=== PATIENT | female | born 1995 | race Caucasian/White ===

== ENCOUNTER 2018-02-21 02:08 | Inpatient (IN) | payer OTHER ==
[2018-02-21] MEDS ORDERED: MORPHINE 4 MG/ML SYR ONE ×2 (02:40→05:19)
[2018-02-21] MEDS ORDERED: ONDANSETRON 4 MG/2 ML VIAL ONE (02:40)
[2018-02-21 02:52] LABS: Absolute Lymphocytes (CBC) 2.2 K/uL (0.7-4.9); Absolute Monocytes 0.7 K/uL (0.1-1.3); Absolute Neutrophil 8.9 K/uL (1.8-8.0); Basophils % 0.8 % (0-1.3); Eosinophils % 1.4 % (0-4.4); Hematocrit 41.3 % (36.0-45.0); Lymphocytes % 18.1 % (15.3-44.8); MCH 29.6 pg (27.0-35.0); MCV 85.4 fL (80-100); MPV 9.6 fL (7.6-11.3); Monocytes % 5.7 % (3.3-12.3); RBC Red Blood Cell Count 4.84 M/uL (3.86-4.86)
[2018-02-21 03:10] LABS: ALT/SGPT 53 U/L (12-78); AST/SGOT 32 U/L (15-37); Albumin 3.8 g/dL (3.4-5.0); Alkaline Phosphatase 109 U/L (45-117); Amylase Level 64 U/L (25-115); BUN Blood Urea Nitrogen 11 mg/dL (7-18); Bicarbonate 27 mmol/L (21-32); Bilirubin Direct 0.2 mg/dL (0-0.2); Bilirubin Total 0.8 mg/dL (0.2-1.0); Glucose Level 100 mg/dL (74-106); Lipase 100 U/L (73-393); Potassium 3.7 mmol/L (3.5-5.1); Protein, Total 7.9 g/dL (6.4-8.2); Sodium Level 141 mmol/L (136-145)
[2018-02-21 03:11] LABS: Urine Blood TRACE (NEG); Urine Glucose NEGATIVE (NEG); Urine Protein NEGATIVE (NEG); Urine Specific Gravity 1.025 (1.005-1.030); Urine pH 6.5 (5.0-7.0)
[2018-02-21 03:14] LABS: Urine Bacteria <20 /HPF (<20); Urine Culture Reflex Order NOT NEEDED; Urine RBC NONE SEEN /HPF (NONE SEEN)
--- NOTE | 2018-02-21 03:41 | EDPHYS ---
Physician Documentation [facility] Name: Sunita Sample Age: 22 yrs Sex: Female : 1995 Arrival Date: 02/21/2018 Time: 02:09 Bed 13 Private MD: ED Physician Edilberto Ku HPI: 02/21 03:37 This 22 yrs old Female presents to ER via Ambulatory with complaints of ana Abdominal Pain. 03:37 The patient presents with abdominal pain in the upper abdomen. Onset: The ana symptoms/episode began/occurred 1 day(s) ago. The symptoms radiate to Associated signs and symptoms: none. The symptoms are described as sharp. Modifying factors: The symptoms are alleviated by nothing, the symptoms are aggravated by food. Severity of pain: At its worst the pain was moderate. The patient has not experienced similar symptoms in the past. 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 - Social history:: Smoking status: Patient/guardian denies using tobacco. - Ebola Screening: : No symptoms or risks identified at this time. - Family history:: not pertinent. ROS: 03:37 Constitutional: Negative for fever, chills, and weight loss, Eyes: Negative for injury, ana pain, redness, and discharge, ENT: Negative for injury, pain, and discharge, Neck: Negative for injury, pain, and swelling, Cardiovascular: Negative for chest pain, palpitations, and edema, Respiratory: Negative for shortness of breath, cough, wheezing, and pleuritic chest pain, Back: Negative for injury and pain, : Negative for injury, bleeding, discharge, and swelling, MS/Extremity: Negative for injury and deformity, Skin: Negative for injury, rash, and discoloration, Neuro: Negative for headache, weakness, numbness, tingling, and seizure, Psych: Negative for depression, anxiety, suicide ideation, homicidal ideation, and hallucinations, Allergy/Immunology: Negative for hives, rash, and allergies, Endocrine: Negative for neck swelling, polydipsia, polyuria, polyphagia, and marked weight changes, Hematologic/Lymphatic: Negative for swollen nodes, abnormal bleeding, and unusual bruising. 03:37 Abdomen/GI: Positive for abdominal pain, of the epigastric area and right upper quadrant. Exam: 03:37 Constitutional: This is a well developed, well nourished patient who is awake, alert, ana and in no acute distress. Head/Face: Normocephalic, atraumatic. Eyes: Pupils equal round and reactive to light, extra-ocular motions intact. Lids and lashes normal. Conjunctiva and sclera are non-icteric and not injected. Cornea within normal limits. Periorbital areas with no swelling, redness, or edema. ENT: Nares patent. No nasal discharge, no septal abnormalities noted. Tympanic membranes are normal and external auditory canals are clear. Oropharynx with no redness, swelling, or masses, exudates, or evidence of obstruction, uvula midline. Mucous membranes moist. Neck: Trachea midline, no thyromegaly or masses palpated, and no cervical lymphadenopathy. Supple, full range of motion without nuchal rigidity, or vertebral point tenderness. No Meningismus. Chest/axilla: Normal chest wall appearance and motion. Nontender with no deformity. No lesions are appreciated. Cardiovascular: Regular rate and rhythm with a normal S1 and S2. No gallops, murmurs, or rubs. Normal PMI, no JVD. No pulse deficits. Respiratory: Lungs have equal breath sounds bilaterally, clear to auscultation and percussion. No rales, rhonchi or wheezes noted. No increased work of breathing, no retractions or nasal flaring. Back: No spinal tenderness. No costovertebral tenderness. Full range of motion. Female : Normal external genitalia. Skin: Warm, dry with normal turgor. Normal color with no rashes, no lesions, and no evidence of cellulitis. MS/ Extremity: Pulses equal, no cyanosis. Neurovascular intact. Full, normal range of motion. Neuro: Awake and alert, GCS 15, oriented to person, place, time, and situation. Cranial nerves II-XII grossly intact. Motor strength 5/5 in all extremities. Sensory grossly intact. Cerebellar exam normal. Normal gait. Psych: Awake, alert, with orientation to person, place and time. Behavior, mood, and affect are within normal limits. 03:37 Abdomen/GI: Inspection: abdomen appears normal, Bowel sounds: normal, Palpation: mild abdominal tenderness, moderate abdominal tenderness, in the epigastric area and right upper quadrant, Indicators: Elkins's sign is positive, Liver: no appreciated palpable abnormalities, Hernia: not appreciated. Vital Signs: 02:28 BP 123 / 69; Pulse 80; Resp 18; Temp 97.6(O); Pulse Ox 100% on R/A; Weight 81.65 kg; ea Height 5 ft. 7 in. (170.18 cm); Pain 9/10; 03:33 BP 112 / 65; Pulse 67; Resp 17 S; Pulse Ox 100% on R/A; jd3 04:41 BP 119 / 76; Pulse 58; Resp 16 S; Pulse Ox 100% on R/A; Pain 3/10; jd3 05:22 BP 108 / 67; Pulse 66; Resp 17 S; Pulse Ox 100% on R/A; Pain 6/10; jd3 02:28 Body Mass Index 28.19 (81.65 kg, 170.18 cm) MDM: 02:56 Patient medically screened. [facility] 03:37 Data reviewed: vital signs, nurses notes, lab test result(s), radiologic studies, ana ultrasound. 02/21 02:25 Order name: Amylase, Serum; Complete Time: 03:28 ea 02/21 02:25 Order name: Basic Metabolic Panel; Complete Time: 03:28 ea 02/21 02:25 Order name: CBC with Diff; Complete Time: 03:28 ea 02/21 02:25 Order name: Hepatic Function; Complete Time: 03:28 ea 02/21 02:25 Order name: Lipase; Complete Time: 03:28 ea 02/21 02:25 Order name: Urine Microscopic Only; Complete Time: 03:28 ea 02/21 03:01 Order name: Urine Dipstick--Ancillary (enter results); Complete Time: 03:28 ms 02/21 03:01 Order name: Urine --Ancillary (enter results); Complete Time: 03:28 ms 02/21 03:46 Order name: Basic Metabolic Panel EDMS 02/21 03:46 Order name: Basic Metabolic Panel EDMS 02/21 03:46 Order name: CBC with Automated Diff EDMS 02/21 03:46 Order name: CBC with Automated Diff EDMS 02/21 03:46 Order name: Lipase EDMS 02/21 02:25 Order name: Urine Test (obtain specimen); Complete Time: 02:36 ea 02/21 02:25 Order name: IV Saline Lock; Complete Time: 02:25 ea 02/21 02:25 Order name: Labs collected and sent; Complete Time: 02:25 ea 02/21 02:25 Order name: EKG; Complete Time: 02:26 ea 02/21 03:37 Order name: US Abdomen Limited [facility] 02/21 03:46 Order name: NPO EDCO 02/21 03:46 Order name: Lipase [facility] 02/21 03:46 Order name: Liver (Hepatic) Function [facility] 02/21 03:46 Order name: Liver (Hepatic) Function [facility] 02/21 02:25 Order name: Urine Dipstick-Ancillary (obtain specimen); Complete Time: 02:36 ea 02/21 02:25 Order name: EKG - Nurse/Tech; Complete Time: 02:25 ea Administered Medications: 02:46 Drug: morphine 2 mg Route: IVP; Site: right antecubital; jd3 04:04 Follow up: Response: No adverse reaction jd3 02:46 Drug: Zofran 4 mg Route: IVP; Site: right antecubital; jd3 04:04 Follow up: Response: No adverse reaction jd3 02:53 Drug: morphine 2 mg Route: IVP; Site: right antecubital; ea 04:05 Follow up: Response: No adverse reaction jd3 04:03 Drug: NS 0.9% 1000 ml Route: IV; Rate: 1 bolus; Site: right antecubital; jd3 04:39 Follow up: Response: No adverse reaction; IV Status: Completed infusion; IV Intake: jd3 1000ml 04:04 Drug: Zosyn 3.375 grams Route: IVPB; Infused Over: 60 mins; Site: right antecubital; jd3 04:38 Follow up: Response: No adverse reaction; IV Status: Completed infusion jd3 04:04 Drug: Pepcid 20 mg Route: IVP; Site: right antecubital; jd3 04:39 Follow up: Response: No adverse reaction jd3 05:22 Drug: morphine 4 mg Route: IVP; Site: right antecubital; jd3 05:41 Follow up: Response: No adverse reaction; Pain is decreased jd3 Disposition: 02/21/18 03:40 Hospitalization ordered by Ben Bernstein for Observation. Preliminary diagnosis is Abdominal tenderness. - Bed requested for Telemetry/MedSurg (observation). - Status is Observation. ea - Condition is Stable. - Problem is new. - Symptoms have improved. UTI on Admission? No Signatures: Dispatcher [employer] EDCO Arina Coronado RN Edilberto Carrasco MD MD cha Antunez, Elena, RN RN ea Davies, Jonathon, RN RN jd3 Corrections: (The following items were deleted from the chart) 02:48 02:26 Creatinine for Radiology+C.LAB.BRZ ordered. [facility] EDCO 05:30 03:40 Hospitalization Ordered by Ben Bernstein MD for Observation. Preliminary diagnosis is Abdominal tenderness. Bed requested for Telemetry/MedSurg (observation). Status is Observation. Condition is Stable. Problem is new. Symptoms have improved. UTI on Admission? No. ana 06:10 05:30 02/21/2018 03:40 Hospitalization Ordered by Ben Bernstein MD for Observation. ea Preliminary diagnosis is Abdominal tenderness. Bed requested for Telemetry/MedSurg (observation). Status is Observation. Condition is Stable. Problem is new. Symptoms have improved. UTI on Admission? No. kl
--- NOTE | 2018-02-21 03:41 | ER ---
Nurse's Notes [facility] Name: Sunita Sample Age: 22 yrs Sex: Female : 1995 Arrival Date: 02/21/2018 Time: 02:09 Bed 13 Private MD: Diagnosis: Abdominal tenderness Presentation: 02/21 02:21 Presenting complaint: Patient states: She started having right upper quadrant pain at ea 1600 yesterday. Reports the pain feels like a stabbing pain and she feels bloated. Transition of care: patient was not received from another setting of care. Onset of symptoms was February 21, 2018. Risk Assessment: Do you want to hurt yourself or someone else? Patient reports no desire to harm self or others. Initial Sepsis Screen: Does the patient meet any 2 criteria? No. Patient's initial sepsis screen is negative. Does the patient have a suspected source of infection? No. Patient's initial sepsis screen is negative. Care prior to arrival: None. 02:21 Method Of Arrival: Ambulatory ea 02:21 Acuity: BIJU 3 ea Triage Assessment: 02:27 General: Appears uncomfortable, Behavior is calm, cooperative, appropriate for age. ea Pain: Complains of pain in right upper quadrant Pain does not radiate. Pain currently is 9 out of 10 on a pain scale. Quality of pain is described as sharp, stabbing. GI: Abdomen is non-distended. 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 - Social history:: Smoking status: Patient/guardian denies using tobacco. - Ebola Screening: : No symptoms or risks identified at this time. - Family history:: not pertinent. Screenin:29 Abuse screen: Denies threats or abuse. Nutritional screening: No deficits noted. ea Tuberculosis screening: No symptoms or risk factors identified. Fall Risk None identified. Assessment: 02:25 General: Appears uncomfortable, Behavior is cooperative, appropriate for age, anxious. jd3 Pain: Complains of pain in right upper quadrant Pain currently is 9 out of 10 on a pain scale. Quality of pain is described as sharp, stabbing, Is continuous. Neuro: Level of Consciousness is awake, alert, obeys commands, Oriented to person, place, time, situation. Cardiovascular: Heart tones S1 S2 present Capillary refill < 3 seconds Patient's skin is warm and dry. Respiratory: Airway is patent Respiratory effort is even, unlabored, Respiratory pattern is regular, symmetrical, Breath sounds are clear bilaterally. GI: Abdomen is round Bowel sounds present X 4 quads. Abd is soft Abdomen is tender to palpation in right upper quadrant. : No signs and/or symptoms were reported regarding the genitourinary system. EENT: No signs and/or symptoms were reported regarding the EENT system. Derm: Skin is intact, Skin is dry, Skin is normal, Skin temperature is warm. Musculoskeletal: Circulation, motion, and sensation intact. Range of motion: intact in all extremities. 03:33 Reassessment: Patient appears in no apparent distress at this time. Patient and/or jd3 family updated on plan of care and expected duration. Pain level reassessed. Patient is alert, oriented x 3, equal unlabored respirations, skin warm/dry/pink. 04:42 Reassessment: Patient appears in no apparent distress at this time. Patient and/or jd3 family updated on plan of care and expected duration. Pain level reassessed. Patient is alert, oriented x 3, equal unlabored respirations, skin warm/dry/pink. Patient states feeling better. 05:23 Reassessment: Patient appears in no apparent distress at this time. Patient and/or jd3 family updated on plan of care and expected duration. Pain level reassessed. Patient is alert, oriented x 3, equal unlabored respirations, skin warm/dry/pink. pt reporting returning of pain sensation, provider notified, new orders received, see OCT. Vital Signs: 02:28 BP 123 / 69; Pulse 80; Resp 18; Temp 97.6(O); Pulse Ox 100% on R/A; Weight 81.65 kg; ea Height 5 ft. 7 in. (170.18 cm); Pain 9/10; 03:33 BP 112 / 65; Pulse 67; Resp 17 S; Pulse Ox 100% on R/A; jd3 04:41 BP 119 / 76; Pulse 58; Resp 16 S; Pulse Ox 100% on R/A; Pain 3/10; jd3 05:22 BP 108 / 67; Pulse 66; Resp 17 S; Pulse Ox 100% on R/A; Pain 6/10; jd3 02:28 Body Mass Index 28.19 (81.65 kg, 170.18 cm) ea ED Course: 02:09 Patient arrived in ED. am2 02:23 Triage completed. ea 02:26 Inserted saline lock: 20 gauge in right antecubital area, using aseptic technique. ea Blood collected. Placed by Vijay LAINEZ. 02:29 Patient has correct armband on for positive identification. Bed in low position. Call ea light in reach. Side rails up X2. Adult w/ patient. 02:29 Arm band placed on right wrist. Patient placed in an exam room, on a stretcher, on ea pulse oximetry. 02:34 Vijay Dan RN is Primary Nurse. j 02:56 Edilberto Ku MD is Attending Physician. ana 03:39 Ben Bernstein MD is Hospitalizing Provider. [facility] 05:55 No provider procedures requiring assistance completed. Patient admitted, IV remains in jd3 place. Administered Medications: 02:46 Drug: morphine 2 mg Route: IVP; Site: right antecubital; jd3 04:04 Follow up: Response: No adverse reaction jd3 02:46 Drug: Zofran 4 mg Route: IVP; Site: right antecubital; jd3 04:04 Follow up: Response: No adverse reaction jd3 02:53 Drug: morphine 2 mg Route: IVP; Site: right antecubital; ea 04:05 Follow up: Response: No adverse reaction jd3 04:03 Drug: NS 0.9% 1000 ml Route: IV; Rate: 1 bolus; Site: right antecubital; jd3 04:39 Follow up: Response: No adverse reaction; IV Status: Completed infusion; IV Intake: jd3 1000ml 04:04 Drug: Zosyn 3.375 grams Route: IVPB; Infused Over: 60 mins; Site: right antecubital; jd3 04:38 Follow up: Response: No adverse reaction; IV Status: Completed infusion jd3 04:04 Drug: Pepcid 20 mg Route: IVP; Site: right antecubital; jd3 04:39 Follow up: Response: No adverse reaction jd3 05:22 Drug: morphine 4 mg Route: IVP; Site: right antecubital; jd3 05:41 Follow up: Response: No adverse reaction; Pain is decreased jd3 Intake: 04:39 IV: 1000ml; Total: 1000ml. jd3 Outcome: 03:40 Decision to Hospitalize by Provider. ana 06:01 Admitted to Med/surg accompanied by tech, via wheelchair, room 421, with chart, Report jd3 called to Martha LAINEZ 06:01 Condition: stable 06:01 Instructed on the need for admit, Demonstrated understanding of instructions. 06:10 Patient left the ED. ea Signatures: Edilberto Ku MD MD cha Moreno, Amanda am2 Antunez, Elena RN RN Vijay Haas RN RN jd3 Corrections: (The following items were deleted from the chart) 02:26 02:26 Inserted saline lock: 20 gauge in right antecubital area, using aseptic ea technique. Blood collected. ea 02:28 02:27 GI: Abdomen is distended, ea ea
[2018-02-21] MEDS ORDERED: ACETAMINOPHEN 500 MG TAB PO PRN (03:42)
[2018-02-21] MEDS ORDERED: FAMOTIDINE 20 MG/2 ML VIAL IV ONE (03:45)
[2018-02-21] MEDS ORDERED: PIPER/TAZO/NS 3.375gm 3.375 GM/100 ML BAG ONE (03:45)
[2018-02-21] MEDS ORDERED: NA CHLORIDE 0.9% 1,000 ML ONE (03:46)
[2018-02-21] MEDS ORDERED: PIPER/TAZO/NS 3.375gm 3.375 GM/100 ML BAG IVPB SCH (06:00)
[2018-02-21 06:26] VITALS: BMI 28.9
[2018-02-21] MEDS: NA CHLORIDE 0.9% 1,000 ML IV SCH ×3 (06:33→18:02)
[2018-02-21] MEDS: FAMOTIDINE 20 MG/2 ML VIAL IV SCH ×2 (08:02→20:23)
--- NOTE | 2018-02-21 08:51 | RAD REPORT ---
EXAM DESCRIPTION: US - Abdomen Exam Limited - 02/21/2018 7:17 am CLINICAL HISTORY: Abdominal pain. COMPARISON: None. FINDINGS: A 14 millimeter stone is present within the gallbladder neck. The gallbladder wall is thic kened measuring 4 millimeters. The biliary tree is normal caliber. IMPRESSION: Cholelithiasis. A stone appears lodged in the gallbladder neck. Mildly thickened gallbla dder wall probably indicates cholecystitis
--- NOTE | 2018-02-21 10:00 | EKG ---
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
[2018-02-21] MEDS: ONDANSETRON 4 MG/2 ML VIAL IV PRN ×2 (10:34→20:23)
[2018-02-21] MEDS: MORPHINE 4 MG/ML SYR IV PRN ×3 (10:34→20:23)
[2018-02-21] MEDS: PIPER/TAZO/NS 3.375gm 3.375 GM/100 ML BAG IVPB SCH ×2 (10:38→18:02)
--- NOTE | 2018-02-21 18:49 | HP ---
Date of Admission: 02/21/2018 History Of Present Illness: This is a case of a 22-year-old patient, came this morning complaining o f epigastric right upper quadrant pain radiating to the back, associated with nausea and vomiting. S he denies any family member sick at home. Denies any recent travelling out of the country. It has b een about a day like that. She denies any dysuria, hematuria, hematochezia, melena. Denies any rece nt traveling out of the country. Denies any family members sick at home. Allergies: SULFA. Medication: control. Past Surgical History: Appendectomy. Past Medical History: None. Social History: She does not smoke. She does not drink alcohol. Review of Systems: Constitutional: Denies any fever. Respiratory: Denies any shortness of breast. Gastrointestinal: As above. Genitourinary: Denies any dysuria, hematuria, or any vaginal discharge. Physical Examination: General: The patient is awake and alert. HEENT: Pupils are equal and reactive, anicteric. Neck: Supple. Chest: Clear. Abdomen: Right upper quadrant tenderness with Elkins sign positive. The rest of the abdomen is soft and depressible. Breasts: Deferred Pelvic: Deferred. Rectal: Deferred. Extremities: Good capillary refill. Cranial nerves 2 through 12 grossly within normal limits. Laboratory Data: WBC count of 12.1, with hemoglobin of 14.3, potassium 3.7. CAT scan of the abdomen and pelvis, just report came out as cholelithiasis with thickening of the gallbladder, indicate chol ecystitis as per Dr. Collado. Assessment: A 22-year-old patient with acute cholecystitis, symptomatic cholelithiasis. The benefit s, alternatives, and risks of laparoscopic, possible open cholecystectomy fully explained, which incl ude, but are not limited to infection, bleeding, damage to adjacent structures, anesthesia complicati on, choledocholithiasis, bile leak, pancreatitis, DC, and even . She also understands this may not relieve any symptoms. She might need more than one surgical intervention. The patient was booke d in OR. JUSTA/ANITA Voice ID: [id number]
[2018-02-21] MEDS: D5 0.9 NS 1,000 ML IV SCH (20:23)
[2018-02-22] MEDS: PIPER/TAZO/NS 3.375gm 3.375 GM/100 ML BAG IVPB SCH ×3 (00:27→17:00)
[2018-02-22] MEDS: D5 0.9 NS 1,000 ML IV SCH ×2 (05:15→16:00)
[2018-02-22 05:56] LABS: Absolute Lymphocytes (CBC) 2.3 K/uL (0.7-4.9); Absolute Monocytes 0.5 K/uL (0.1-1.3); Absolute Neutrophil 2.8 K/uL (1.8-8.0); Basophils % 1.3 % (0-1.3); Eosinophils % 4.6 % (0-4.4); Hematocrit 36.8 % (36.0-45.0); MCV 86.1 fL (80-100); MPV 9.4 fL (7.6-11.3); Monocytes % 8.6 % (3.3-12.3); RBC Red Blood Cell Count 4.27 M/uL (3.86-4.86)
[2018-02-22 06:12] LABS: Albumin 2.9 g/dL (3.4-5.0); Bilirubin Direct 0.7 mg/dL (0-0.2); Potassium 3.3 mmol/L (3.5-5.1); Protein, Total 6.2 g/dL (6.4-8.2)
[2018-02-22] MEDS: FAMOTIDINE 20 MG/2 ML VIAL IV SCH (09:28)
[2018-02-22] MEDS ORDERED: LIDOCAINE 1% MPF 5 ML VIAL ONE (11:55)
[2018-02-22] MEDS ORDERED: PROPOFOL 200 MG/20 ML VIAL IV ONE (11:55)
[2018-02-22] MEDS ORDERED: MIDAZOLAM HCL 2 MG/2 ML INJ ONE (11:55)
[2018-02-22] MEDS ORDERED: ROCURONIUM 50 MG/5 ML VIAL IV ONE (11:56)
[2018-02-22] MEDS ORDERED: FENTANYL CITR 100 MCG/2 ML ONE ×2 (11:56→13:27)
[2018-02-22] MEDS ORDERED: Ringers Lactate 0 ML IV ONE (12:02)
[2018-02-22] MEDS ORDERED: Ringers Lactate 1,000 ML IV ONE (12:04)
[2018-02-22] MEDS ORDERED: GLYCOPYRROLATE 0.2 MG/ML SYR ONE (13:57)
[2018-02-22] MEDS ORDERED: ONDANSETRON HCL 40 MG/20 ML VIAL ONE (13:58)
[2018-02-22] MEDS ORDERED: NEOSTIGMINE 1 MG/ML -5 ML SYRINGE ONE (13:58)
[2018-02-22] MEDS ORDERED: KETOROLAC 30 MG/ML INJ ONE (13:58)
[2018-02-22] MEDS ORDERED: MEPERIDINE HCL 25 MG/0.5 ML ONE ×3 (14:11→14:29)
[2018-02-22 14:19] VITALS: O2SAT 100
[2018-02-22] MEDS ORDERED: HYDROCODONE/APAP 7.5/325 MG TAB PO PRN (14:20)
--- NOTE | 2018-02-22 14:24 | P.BOP ---
Preoperative diagnosis: acute cholecystitis, symptomatic cholelithiasis Postoperative diagnosis: same Primary procedure: Laparoscopic cholecystectomy Estimated blood loss: <10cc Specimen: gb Findings: acute cholecystitis, symptomatic cholelithiasis Anesthesia: General Complications: None Transferred to: Recovery Room Condition: Good
[2018-02-22 14:35] VITALS: BP 109/65; TEMP 97.3
--- NOTE | 2018-02-22 18:23 | OP ---
Date of Procedure: 02/22/2018 Surgeon: Ben Bernstein MD Preoperative Diagnosis: Acute cholecystitis, symptomatic cholelithiasis. Postoperative Diagnosis: Acute cholecystitis, symptomatic cholelithiasis. Procedure: Laparoscopic cholecystectomy. Specimen: Gallbladder. Findings: Acute cholecystitis, symptomatic cholelithiasis. Anesthesia: General plus local. Indications: This is the case of a 22-year-old patient, comes to us with acute intractable abdominal pain associated with nausea and vomiting. The patient had to be admitted to the hospital for intrac table abdominal pain. The benefits, alternatives, and risks of laparoscopic, possible open cholecyst ectomy fully explained to the patient, which include, but are not limited to infection, bleeding, dam age to adjacent structures, anesthesia complication, choledocholithiasis, bile leak, pancreatitis, CO , and even . She also understands this may not relieve any symptoms. She might need more than one surgical intervention. She understood and signed a consent. Description Of Procedure: The patient was brought to the operating room, placed in supine position. Anesthesia was done without complication. Abdominal area was prepped and draped in usual sterile fa shion. Marcaine 0.5% injected for local anesthetic, followed by sharp incision of the skin in the in fraumbilical region. Incision was carried down to fascia, which was opened under direct vision. Per itoneum was encountered, opened under direct vision. Vicryl #1 placed inside the fascia. Sukhi tro car was carefully introduced. No bleeding was obtained. We placed 3 more trocars, 5 mm each of them in the right upper quadrant under direct visualization. This allowed me to put a grasper in the fun dus of the gallbladder, another grasper in the infundibulum. We retracted the gallbladder in the inf erolateral fashion exposing the triangle of Calot and obtaining critical view of safety. Cystic duct and cystic artery were clearly isolated free circumferentially and a connection between those and th e gallbladder were clearly identified. I proceeded to ligate those by using at least 3 clips proxima l, 1 clip distal, ligation in middle. Same was done with the cystic artery. No bile leak. No bleed ing. The gallbladder was removed from liver using Bovie cauterizer and removed from abdominal cavity using an EndoCatch through the umbilical incision. The area was inspected once again. No bile leak . No bleeding. Gallbladder fossa was intact. At that moment, I proceeded to remove the trocars und er direct vision. Deflated pneumoperitoneum. Closed the fascia with #1 Vicryl. Irrigated subcutane ous tissue, closed that with 3-0 chromic and skin with deidra. Sponge count and instrument counts w ere correct. The patient tolerated the procedure well. The patient was sent to recovery in stable c ondition. Diagnosis: Acute cholecystitis symptomatic, cholelithiasis. Procedure: Laparoscopic cholecystectomy. Plan: The patient will go to the floor. If she tolerates diet, then she will be able to go home. Tasha de dios up in my office in 1 week. Call for appointment [phone]. Keep area dry for 48 hours, then ma y shower. Keep Steri-Strips intact. Medications: Include Tylenol No. 3 q.4 hours p.r.n. pain, Cipro 500 p.o. q.12. Do not lift more than 20 pounds lifting. Keep area dry for 48 hours, then may shower. The patient i s planning to go back to her hometown in [facility]. She was advised if she goes back there to becky gann up with surgeon about a week from now to get the deidra out. JUSTA/ANITA Voice ID: [id number] Report ID: [id number]
== END 2018-02-22 17:08 | disposition home or self-care (01) | DRG 419 ==
LOC: ER 02:08 → ERHOLD 03:41 → 4TH 05:41 → OBSVTOIN 13:19
PROVIDERS: ADMIT Surgery; ATTEND Surgery
PROC: 0FT44ZZ Resection of Gallbladder, Percutaneous Endoscopic Approach (ICD-10-PCS; principal; 2018-02-22 12:30)
DX: K80.00 Calculus of gallbladder with acute cholecystitis without obstruction (principal); Z88.2 Allergy status to sulfonamides
CPT/HCPCS: 36415; 76705; 80048; 80076; 81003; 81015; 81025; 82150; 82962; 83690; 85025; 88304; 93005; 96365; 96375; 99285; G0378; J2175; J2250; J2405; J2543; J2710; J3010; J7030